=== PATIENT | male | born 1995 | race Caucasian/White ===

== ENCOUNTER → 2016-07-21 | Outpatient (CLI) | payer OTHER ==
--- NOTE | 2016-07-21 08:46 | DIAGNOSTIC IMAGING REPORT ---
MRI OF THE PELVIS AND HIPS WITHOUT CONTRAST CLINICAL HISTORY: Strain of right hip flexor muscle. COMPARISON STUDY: MRI of the pelvis March 07, 2016. TECHNIQUE: Utilizing a 1.5 Monica magnet and dedicated coil, multiplanar, multiecho imaging of the pelvis and hips was performed without intravenous or intra-articular contrast. FINDINGS: There is mild edema adjacent to the symphysis pubis which has diminished since MRI of March 07, 2016. Symmetric linear hypointense signal within the medial pubic bones is unchanged. No additional areas of marrow edema are present. There is no marrow replacement. There is no hematoma or mass within the pelvis. There is no pelvic lymphadenopathy. No muscular edema is noted. There is no MRI evidence for a sports hernia. Note is made of a small right paracentral disc protrusion within the lower lumbar spine. There is a transitional vertebra at the lumbosacral junction which is designated as S1 on this exam. Therefore, this disc protrusion is at the L5-S1 level when utilizing this numbering scheme. This is similar to prior MRI of March 07, 2016. IMPRESSION: 1. Mild edema adjacent to the symphysis pubis which is diminished since MRI of March 07, 2016. This is likely on a stress-related basis. No additional sites of marrow edema. 2. No change in a small right paracentral disc protrusion at the L5-S1 level. Transitional vertebra at the lumbosacral junction. Please see above numbering scheme. Electronically signed by: Jackson Hdez M.D. 07/21/2016 8:44 AM Dictated Date/Time: 07/21/2016 8:29 AM
== END | disposition home or self-care (01) ==
LOC: C.MRIBC 06:55
PROVIDERS: ATTEND Internal Medicine
DX: S76.011A Strain of muscle, fascia and tendon of right hip, initial encounter (principal); X58.XXXA Exposure to other specified factors, initial encounter; M51.27 Other intervertebral disc displacement, lumbosacral region; Q76.49 Other congenital malformations of spine, not associated with scoliosis